=== PATIENT | male | born 1990 | race Two or more races ===

== ENCOUNTER 2022-04-13 11:07 | Outpatient (REF) | payer OTHER, SELFPAY ==
[2022-04-13 11:50] LABS: COVID-19 Test Negative (Negative); IDNOW Serial# 16C4AD1C
== END 2022-04-13 11:08 | disposition home or self-care (01) ==
LOC: HO.LAB 11:07
PROVIDERS: Visit Provider Internal Medicine
DX: Z20.822 Contact with and (suspected) exposure to COVID-19 (principal)
CPT/HCPCS: 87635

== ENCOUNTER 2022-08-16 13:47 | Outpatient (REF) | payer OTHER, SELFPAY ==
--- NOTE | ~2022-08-16 | XR_ITS ---
EXAMINATION: XR SHOULDER, LEFT CLINICAL INFORMATION: Left shoulder pain. COMPARISON: None TECHNIQUE: AP external rotation, Grashey, scapular Y, and axillary views of the left shoulder. FINDINGS: Glenohumeral and acromioclavicular alignment is anatomic with normal joint space. No fracture or dislocation. No abnormal soft tissue calcifications. XR/XR shoulder LT min 2V IMPRESSION: No acute abnormality.
== END 2022-08-16 13:48 | disposition home or self-care (01) ==
LOC: HO.XRAY 13:47
PROVIDERS: Visit Provider General Practice
DX: M25.512 Pain in left shoulder (principal)
CPT/HCPCS: 73030

== ENCOUNTER 2024-11-29 15:35 | Outpatient (REF) | payer OTHER, SELFPAY ==
[2024-11-29 16:11] LABS: MANUAL DIFF FLAG NO
[2024-11-29 16:13] LABS: Basophils Percent Auto 0.4 % (0-2); Eosinophils Absolute Auto 0.5 X10*3/uL (0.0-0.4); Eosinophils Percent Auto 5.2 % (0-4); Hematocrit 41.2 % (42.0-52.0); Hemoglobin 14.1 g/dl (14.0-18.0); Imm Gran Abs Auto 0.03 X10*3/uL (0.00-0.03); Imm Gran Pct Auto 0.3 % (0.0-0.4); Lymphocytes Absolute Auto 3.8 X10*3/uL (1.2-4.9); Lymphocytes Percent Auto 37.7 % (20-40); Mean Corpuscular HGB Conc 34.2 g/dl (31.0-36.0); Mean Corpuscular Hemoglobin 29.7 pg (27.0-33.0); Mean Corpuscular Volume 86.9 fL (80.0-98.0); Mean Platelet Volume 8.3 fL (9.4-12.4); Monocytes Absolute Auto 0.5 X10*3/uL (0.1-1.2); Monocytes Percent Auto 5.1 % (2-11); Neutrophils Absolute Auto 5.2 x10*3/uL (2.0-8.3); Neutrophils Percent Auto 51.3 % (45-73); Platelet Count 308 X10*3/uL (160-400); Red Blood Count 4.74 X10*6/uL (4.60-5.80); Red Cell Distribution Width 12.7 % (11.0-16.0); White Blood Count 10.1 X10*3/uL (4.8-10.8)
[2024-11-29 16:49] LABS: Alanine Aminotransferase 19 U/L (0-40); Albumin Level 4.8 g/dL (3.5-5.0); Alkaline Phosphatase 42 U/L (39-117); Anion Gap 13 (12-20); Aspartate Amino Transferase 21 U/L (5-37); Bilirubin Total 0.4 mg/dL (0.0-1.0); Blood Urea Nitrogen 13 mg/dL (9-16); Calcium 9.2 mg/dL (8.4-10.2); Carbon Dioxide 23 mmol/L (22-29); Chloride 109 mmol/L (96-108); Cholesterol 154 mg/dL (<200); Estimated Glomerular Filt Rate > 60; Glucose Random 93 mg/dL (60-115); HDL Cholesterol 33 mg/dL (>40); LDL Cholesterol Calculated 87 mg/dL (<100); Potassium 4.1 mmol/L (3.3-5.1); Sodium 141 mmol/L (135-145); Total Protein 7.9 g/dL (6.5-8.0); Triglycerides 174 mg/dL (<150)
[2024-11-29 17:25] LABS: Reflex LDLD? No
[2024-11-30 04:37] LABS: Hepatitis A Antibody IgG Nonreactive (Nonreactive); ~Hepatitis A Antibody IgG 0.17 S/CO (0.00-0.99)
[2024-11-30 04:40] LABS: HBS Num1 18.02 mIU/mL (0-7.99); HBc Num1 0.11 S/CO (0.00-0.79); HBsAGNum1 0.35 S/CO (0.00-0.99); Hepatitis B Core Antibody Nonreactive (Nonreactive); Hepatitis B Surface Antigen Negative (Negative); ~Hepatitis B Surface Antibody REACTIVE (Nonreactive)
[2024-11-30 21:09] LABS: HIV RNA PCR Qn Copies NOT DETECTED copies/mL (NOT DETECTED); HIV RNA PCR Qn Log Copies NOT DETECTED (NOT DETECTED)
[2024-12-03 03:49] LABS: Absolute CD3 Count 2849 cells/uL (840-3060); Absolute CD4 Count 1830 cells/uL (490-1740); Absolute CD8 Count 1080 cells/uL (180-1170); Absolute Lymphocytes 3827 cells/uL (850-3900); Percent CD3 Cells 74 % (57-85); Percent CD4 Cells 48 % (30-61); Percent CD8 Cells 28 % (12-42)
== END 2024-11-29 15:36 | disposition home or self-care (01) ==
LOC: HO.HHCL 15:35
PROVIDERS: Visit Provider Internal Medicine
DX: B20 Human immunodeficiency virus [HIV] disease (principal); Z21 Asymptomatic human immunodeficiency virus [HIV] infection status
CPT/HCPCS: 36415; 80053; 80061; 82550; 85025; 86359; 86360; 86704; 86706; 86708; 87340; 87536

== ENCOUNTER 2025-06-03 14:04 | Outpatient (REF) | payer MEDICAID, SELFPAY ==
--- OUTSIDE RECORDS SUMMARY | 2025-06-03 14:09 | XMS_ITS ---
Author Name [facility] Organization Unknown Care Team Organization Name Specialty Phone Email Start Date End Da te [facility] NULL Primary Care 08/27/2022 06/07/2024
[2025-06-03 16:16] LABS: MANUAL DIFF FLAG NO
[2025-06-03 16:35] LABS: Hematocrit 46.6 % (42.0-52.0); Hemoglobin 15.7 g/dl (14.0-18.0); Imm Gran Abs Auto 0.03 X10*3/uL (0.00-0.03); Imm Gran Pct Auto 0.3 % (0.0-0.4); Lymphocytes Absolute Auto 3.7 X10*3/uL (1.2-4.9); Mean Corpuscular HGB Conc 33.7 g/dl (31.0-36.0); Mean Corpuscular Hemoglobin 29.4 pg (27.0-33.0); Mean Corpuscular Volume 87.3 fL (80.0-98.0); NRBC Abs Auto 0.000 X10*3/uL (0.0-0.012); NRBC Pct Auto 0.0 /100WBC (0.0-0.2); Platelet Count 313 X10*3/uL (160-400); Red Blood Count 5.34 X10*6/uL (4.60-5.80); White Blood Count 10.0 X10*3/uL (4.8-10.8)
[2025-06-03 16:57] LABS: Alanine Aminotransferase 18 U/L (0-40); Albumin Level 5.3 g/dL (3.5-5.0); Alkaline Phosphatase 48 U/L (39-117); Anion Gap 15 (12-20); Aspartate Amino Transferase 22 U/L (5-37); Blood Urea Nitrogen 10 mg/dL (9-16); Calcium 9.9 mg/dL (8.4-10.2); Carbon Dioxide 24 mmol/L (22-29); Chloride 105 mmol/L (96-108); Estimated Glomerular Filt Rate > 60; Potassium 3.9 mmol/L (3.3-5.1); Sodium 140 mmol/L (135-145); Total Protein 7.9 g/dL (6.5-8.0)
[2025-06-04 08:13] LABS: Syphilis Screen Reactive (Nonreactive); ~HepC Num1 0.11 S/CO (0.00-0.79); ~Hepatitis C Antibody Nonreactive (Nonreactive)
[2025-06-06 13:38] LABS: TS Negative Control Passed; TS Panel A 0; TS Panel B 1; TS Positive Control Passed; TSpotTB Negative (Negative)
[2025-06-06 14:38] LABS: HIV RNA PCR Qn Copies 161 copies/mL (NOT DETECTED); HIV RNA PCR Qn Log Copies 2.21 (NOT DETECTED)
[2025-06-09 15:33] LABS: Absolute CD3 Count 2660 cells/uL (840-3060); Absolute CD8 Count 1063 cells/uL (180-1170); Percent CD3 Cells 73 % (57-85); Percent CD8 Cells 29 % (12-42)
[2025-06-10 11:12] LABS: T.Pallidum Particle Agg Test Reactive (Nonreactive)
== END 2025-06-03 14:05 | disposition home or self-care (01) ==
LOC: HO.HHCL 14:04
PROVIDERS: Visit Provider Internal Medicine
DX: Z01.84 Encounter for antibody response examination (principal); Z21 Asymptomatic human immunodeficiency virus [HIV] infection status; Z11.59 Encounter for screening for other viral diseases; Z11.3 Encounter for screening for infections with a predominantly sexual mode of transmission; Z11.1 Encounter for screening for respiratory tuberculosis
CPT/HCPCS: 36415; 80053; 82550; 85025; 86359; 86360; 86481; 86592; 86780; 86803; 87536

== ENCOUNTER 2025-09-27 14:18 | Outpatient (REF) | payer MEDICAID, SELFPAY ==
[2025-09-29 19:18] LABS: HIV RNA PCR Qn Copies 56 copies/mL (NOT DETECTED); HIV RNA PCR Qn Log Copies 1.75 (NOT DETECTED)
== END 2025-09-27 14:19 | disposition home or self-care (01) ==
LOC: HO.HHCL 14:18
PROVIDERS: PCP Internal Medicine; Visit Provider Internal Medicine
DX: B20 Human immunodeficiency virus [HIV] disease (principal)
CPT/HCPCS: 36415; 87536